=== PATIENT | male | born 1975 | race Caucasian/White ===

== ENCOUNTER 2023-07-05 18:06 | Emergency (ER) | payer BC, SELFPAY ==
--- NOTE | ~2023-07-05 | XR_ITS ---
EXAMINATION: XR chest 2V DATE: 07/05/2023 19:10 INDICATION: Shortness of breath. Right lower quadrant abdominal pain. TECHNIQUE: Frontal and lateral views of the chest were obtained. COMPARISON: None. FINDINGS: There is no pneumonia, pleural effusion, or pneumothorax. The heart size is normal. There i s mild chronic anterior wedging of multiple vertebral bodies. IMPRESSION: 1. No acute cardiopulmonary disease. Reviewed, dictated and finalized at location E.
--- NOTE | ~2023-07-05 | CT_ITS ---
EXAMINATION: CT abdomen pelvis w con DATE: 07/05/2023 19:18 INDICATION: Right lower quadrant abdominal pain. TECHNIQUE: Computed tomography (CT) of the abdomen and pelvis was performed with 100 mL Omnipaque 350 intravenous contrast. Automated exposure control and iterative reconstruction technique were employe d. The dose-length product was 269.27 mGy-cm. COMPARISON: None. FINDINGS: The visualized portions of the lung bases demonstrate mild atelectasis. No pleural effusion . The heart size is normal. No pericardial effusion. In the left hepatic lobe, there is a 2.0 cm mass with interrupted peripheral puddling of contrast, consistent with a hemangioma. There is a 7 mm cyst in the liver. The gallbladder, spleen, pancreas, adrenal glands are normal. There are cysts in the k idneys measuring up to 13 mm on the left. The appendix is normal. There are no dilated loops of bowel . There are no pathologically enlarged lymph nodes. There is no ascites. There is subcutaneous fat st randing in right inguinal region. There is mild thoracic and lumbar spondylosis. IMPRESSION: 1. Subcutaneous fat stranding in right inguinal region, consistent with inflammation. Reviewed, dictated and finalized at location E. IMPRESSION: 1. Subcutaneous fat stranding in right inguinal region, consistent with inflamm ation.
[2023-07-05 18:07] VITALS: BP 129/65; PULSE 84; RESP 16; TEMP 36.4; O2SAT 99
[2023-07-05 18:26] LABS: Basophils Percent Auto 0.2 % (0.2-1.2); Eosinophils Absolute Auto 0.5 K/mm3 (0-0.3); Eosinophils Percent Auto 5.2 % (0-4.4); Hematocrit 46.9 % (42.0-52.0); Hemoglobin 15.6 g/dL (14.0-18.0); Immature Granulocyte Absolute 0.01 K/mm3 (0.00-0.031); Immature Granulocyte Percent A 0.1 % (0-0.5); Lymphocytes Absolute Auto 1.73 K/mm3 (0.9-3.2); Lymphocytes Percent Auto 19.7 % (18.3-44.2); Mean Corpuscular HGB Conc 33.3 g/dl (32-36); Mean Corpuscular Hemoglobin 29.8 pg (26-34); Mean Corpuscular Volume 89.5 fl (80-100); Mean Platelet Volume 9.3 fl (7.4-10.4); Monocytes Absolute Auto 0.8 K/mm3 (0.1-0.6); Monocytes Percent Auto 9.3 % (2.6-8.5); Neutrophils Absolute Auto 5.7 K/mm3 (1.3-6.7); Neutrophils Percent Auto 65.5 % (45.5-73.1); Platelet Count Result 146 k/mm3 (150-375); Red Blood Count 5.24 M/mm3 (4.6-6.20); Red Cell Distribution Width 13.8 % (11.5-14.5); White Blood Count 8.8 K/mm3 (4.5-10.0)
[2023-07-05 18:38] LABS: Alanine Aminotransferase 30 U/L (6-50); Albumin Level 4.5 g/dL (3.5-5.1); Alkaline Phosphatase 75 U/L (38-126); Anion Gap 4 mmol/L (8-16); Aspartate Amino Transferase 27 U/L (17-59); Bilirubin,Total 0.5 mg/dL (0.2-1.3); Blood Urea Nitrogen 15 mg/dL (9-20); Calcium 9.1 mg/dL (8.4-10.2); Carbon Dioxide 30 mmol/L (22-30); Chloride 105 mmol/L (98-107); Estimated CRCL calculation 80 ml/min; Estimated Glomerular Filt Rate > 60; Glucose 115 mg/dL (65-110); Lipase 24 U/L (23-300); Potassium 3.9 mmol/L (3.4-5.0); Sodium 139 mmol/L (137-145)
--- NOTE | 2023-07-05 19:00 | ED.ABDPAIN ---
HPI - Abdominal Pain General Chief Complaint: Abdominal Pain Stated Complaint: abdominal bloating Time Seen by Provider: 07/05/23 18:15 History of Present Illness HPI narrative: Patient is a 48-year-old male presenting with abdominal pain. Patient states that for the last 1 to 2 days he has had severe right lower quadrant pain as well as periumbilical pain. States it is worse with movement. He denies nausea or vomiting, no diarrhea or constipation. States he had a normal bowel movement yesterday. He does report some dysuria earlier today as well as bilateral flank pain. He denies chest pain, cough, fevers, headache, numbness or weakness. States that he will sometimes feel short of breath intermittently. He denies leg swelling, upper back pain. Denies prior abdominal surgeries. States that he does have a rash related to poison mily right now. Related Data Allergies Allergy/AdvReac Type Severity Reaction Status Date / Time No Known Allergies Allergy Verified 07/05/23 18:09 Review of Systems Review of Systems: All systems reviewed & are unremarkable except as noted in HPI and below Exam Narrative: GENERAL: Well-appearing, well-nourished, and in no acute distress. HEAD: Normocephalic, atraumatic. EYES: PERRLA and EOMI. ENT: Nares clear, no rhinorrhea or epistaxis. Mucous membranes moist. NECK: Supple. CHEST: Clear to auscultation. No respiratory distress. HEART: Regular rate and rhythm ABDOMEN: Soft, + right lower quadrant tenderness, no guarding or rebound EXTREMITIES: Normal range of motion. No edema. SKIN: Warm, dry, + diffuse rash anterior abdomen consistent with poison mily; rash does not extend over RLQ but there is an area of medical officer psychiatry erythema in RLQ extending down R thigh, concerning for cellulitis NEURO: No focal deficits. Alert and oriented x3. PSYCH: Normal mood and affect. Course Vital Signs Vital signs: Vital Signs Temperature 97.6 F 07/05/23 18:07 Pulse Rate 84 07/05/23 18:07 Respiratory Rate 16 07/05/23 18:07 Blood Pressure 129/65 07/05/23 18:07 Pulse Oximetry 99 07/05/23 18:07 Temperature 97.6 F 07/05/23 18:07 Pulse Rate 78 07/05/23 20:48 Respiratory Rate 15 07/05/23 20:48 Blood Pressure 127/75 07/05/23 20:48 Pulse Oximetry 100 07/05/23 20:48 MDM - Abdominal Pain MDM Narrative Medical decision making narrative: Patient is a 48-year-old male presenting with periumbilical and right lower quadrant pain for several days. Vitals are within normal limits. Exam remarkable for the above. He declines pain medication currently. Plan for labs, CT abdomen pelvis, fluids. CT abdomen pelvis without acute intra-abdominal pathology. Radiology is reading inflammation of the soft tissue in his right lower quadrant into the right inguinal region. This is consistent with the erythema and tenderness on exam. We will cover him with Keflex for cellulitis, possibly related to his ongoing poison mily rash and excoriations. Blood work with mild thrombocytopenia. UA is unremarkable. On reevaluation, the patient is resting comfortably. Discussed the work-up. Advised Tylenol and ibuprofen for pain control. We will send him out with a Keflex prescription. Advised PCP follow-up. Appropriate return precautions given. Patient voiced understanding and is agreeable with plan. Discharged in stable condition. Differential Diagnosis Differential diagnosis: Likely abdominal pain, acute appendicitis, constipation, diverticulitis, gastroenteritis, pancreatitis, small bowel obstruction and other (Cellulitis, poison mily) Medical Records Attestation: I reviewed the patient's medical records. Lab Data Attestation: I reviewed the patient's lab results. 07/05/23 18:20 07/05/23 18:20 Labs: Lab Results 07/05/23 07/05/23 Range/Units 18:20 19:44 WBC 8.8 (4.5-10.0) K/mm3 RBC 5.24 (4.6-6.20) M/mm3 Hgb 15.6 (14.0-18.0) g/dL Hct 46.9 (42.0-52.0
[2023-07-05] MEDS: LACTATED RINGERS 1,000 ML 999 ML IV CONT (19:47)
[2023-07-05 19:51] LABS: Appearance Urine Clear (Clear); Bilirubin Urine Negative (Negative); Blood Urine Negative (Negative); Color Urine Yellow (Yellow); Glucose Urine UA Negative (Negative); Ketones Urine Negative (Negative); Leukocyte Esterase Ur Negative LEU/UL (Negative); Nitrate Urine Negative (Negative); Protein Urine Negative (Negative); pH Urine 6.5 (5.0-9.0)
[2023-07-05 19:53] LABS: Add Urine Microscopic? NO; Specific Grav Ur 1.063 (1.001-1.035)
[2023-07-05] MEDS: ACETAMINOPHEN 500 MG TABLET 1000 MG PO (20:36)
[2023-07-05] MEDS: CEPHALEXIN 500 MG CAPSULE PO (20:37)
[2023-07-05] MEDS: KETOROLAC 15 MG/ML VIAL (*BKC) IV PUSH (20:37)
[2023-07-05 20:48] VITALS: BP 127/75; PULSE 78; RESP 15; O2SAT 100
== END 2023-07-05 20:50 | disposition home or self-care (01) ==
PROVIDERS: Emergency Provider Emergency Medicine
DX: L03.311 Cellulitis of abdominal wall (principal); L23.7 Allergic contact dermatitis due to plants, except food
CPT/HCPCS: 36415; 71046; 74177; 80053; 81003; 83690; 85025; 96361; 96374; 99284; A9270; J1885; J7120; Q9967